=== PATIENT | male | born 1960 | race Caucasian/White ===

== ENCOUNTER → 2017-05-22 | Outpatient (CLI) | payer OTHER ==
[~2017-05-22] MED LIST: ALBU90OI INH; BENZ100A; BUPR75; Bactrim Ds Tab1 EACH PO; CAMBIA50 MG; CHOL10002; CREON DR 12,001 EACH PO; Cleocin HCl150 MG PO; DICL25ER PO; DULO60; DULO60 PO; ERGO400 PO; FISH OIL 1,0001 EAC1; GABA600 PO; GEMF600 PO; GLIP10 PO; GLIP5 PO; HYDACE5 PO; HYDCHL25 PO; HYDR1TAB94 PO; IBUP800 PO; INSUASPI SC; INSULANPEN; LISI20 PO; METF500 PO; Norco 5-325 Ta1 EACH PO; Norco 7.5-3251 EACH PO; Novolog100 UNIT/1 SC; OMEP20ER PO; OMEP40CA12 PO; OXYACE5T PO; PRAZ2 PO; PRED10 PO; PROC10 PO; PROM25 PO; Pravachol40 MG PO; QUET100 PO; QUET200 PO; RXHYDACE PO; Stool Softener100 MG; TRAZ100; TRAZ100 PO; TRAZODONE; Vitamin D2000 UNIT PO; Zofran Odt4 MG SL; Zofran4 MG PO
[2017-05-22 14:59] LABS: Percent Saturation 26.4 % (20.0-50.0)
== END | disposition home or self-care (01) ==
LOC: LAB SHORT 13:13 → LAB 13:13
PROVIDERS: Internal Medicine Hematology & Oncology
DX: D64.9 Anemia, unspecified (principal); I10 Essential (primary) hypertension
CPT/HCPCS: 82728; 83540; 83550

== ENCOUNTER → 2017-11-13 | Outpatient (CLI) | payer OTHER | END | disposition home or self-care (01) | LOC: LAB SHORT 11:11 → PLD 11:11 | DX: D48.5 Neoplasm of uncertain behavior of skin (principal) | CPT/HCPCS: 88305; 88312 ==

== ENCOUNTER → 2019-08-05 | Outpatient (CLI) | payer OTHER ==
[2019-08-05 13:01] LABS: BASOPHILS ABSOLUTE AUTO 0.02 K/mm3 (0.00-0.23); BASOPHILS PERCENT AUTO 0 % (0-2); EOSINOPHILS ABSOLUTE AUTO 0.09 K/mm3 (0.00-0.68); EOSINOPHILS PERCENT AUTO 1 % (0-6); Hematocrit 40.9 % (37.0-53.0); Hemoglobin 14.4 g/dL (13.5-17.5); IMMATURE GRAN ABSOLUTE AUTO 0.05 K/mm3 (0.00-0.10); IMMATURE GRAN PERCENT AUTO 1 % (0-1); LYMPHOCYTES ABSOLUTE AUTO 2.61 K/mm3 (0.84-5.20); LYMPHOCYTES PERCENT AUTO 32 % (21-46); MONOCYTES ABSOLUTE AUTO 0.43 K/mm3 (0.16-1.47); MONOCYTES PERCENT AUTO 5 % (4-13); Mean Corpuscular HGB Conc 35.2 g/dL (31.5-36.5); Mean Corpuscular Volume 88 fL (80-100); Mean Platelet Volume 10.2 fL (9.1-12.4); NEUTROPHILS ABSOLUTE AUTO 5.02 K/mm3 (1.96-9.15); NEUTROPHILS PERCENT AUTO 61 % (41-73); Platelet Count 277 K/mm3 (150-400); RDW Coefficient Variation 12.4 % (11.7-14.2); RDW Standard Deviation 39.4 fL (35.1-46.3); Red Blood Cell Count 4.64 M/mm3 (4.30-5.90); White Blood Cell Count 8.22 K/mm3 (4.00-11.30)
[2019-08-05 13:09] LABS: Alanine Aminotransfer (ALT/SGP 65 U/L (12-78); Albumin, Blood 4.6 g/dL (3.4-5.0); Albumin/Globulin Ratio 1.2 (0.8-1.8); Alk Phos 95 U/L (40-126); Anion Gap 13 mmol/L (6-16); Aspartate Aminotrans (AST/SGOT 52 U/L (12-37); Bilirubin, Total 0.3 mg/dL (0.1-1.0); Blood Urea Nitrogen 20 mg/dL (8-24); Bun/Creatinine Ratio 21.1 (12.0-20.0); CO2, Blood 27 mmol/L (21-32); Calcium, Blood 9.5 mg/dL (8.5-10.1); Chloride, Blood 102 mmol/L (98-108); Creatinine, Blood 0.95 mg/dL (0.60-1.20); Globulin, Blood 3.9 g/dL (2.2-4.0); Glomerular Filtration Rate >60 (60-); Glucose, Blood 193 mg/dL (70-99); Potassium, Blood 5.3 mmol/L (3.5-5.5); Sodium, Blood 142 mmol/L (136-145); Total Protein, Blood 8.5 g/dL (6.4-8.2)
[2019-08-05 21:22] LABS: Adenovirus F 40/41 Not Detected (NOT DETECT); Astrovirus Not Detected (NOT DETECT); Campylobacter Sp Not Detected (NOT DETECT); Cryptosporidium Not Detected (NOT DETECT); Cyclospora Cayetanensis Not Detected (NOT DETECT); E. Coli O157 Not Detected (NOT DETECT); Entamoeba Histolytica Not Detected (NOT DETECT); Enteroaggregative E. coli-EAEC Not Detected (NOT DETECT); Enteropathogenic E. coli-EPEC Not Detected (NOT DETECT); Enterotoxigenic E. coli-ETEC Not Detected (NOT DETECT); Giardia Lamblia Not Detected (NOT DETECT); Norovirus GI/GII Not Detected (NOT DETECT); Plesiomonas Shigelloides Not Detected (NOT DETECT); Rotavirus A Not Detected (NOT DETECT); Salmonella Sp Not Detected (NOT DETECT); Sapovirus Not Detected (NOT DETECT); Shiga Toxin-prod E. coli-STEC Not Detected (NOT DETECT); Shigella/Enteroin E. coli-EIEC Not Detected (NOT DETECT); Vibrio Cholerae Not Detected (NOT DETECT); Vibrio Sp Not Detected (NOT DETECT); Yersinia Enterocolitica Not Detected (NOT DETECT)
== END | disposition home or self-care (01) ==
LOC: LAB SHORT 12:54 → LAB EV 12:54
PROVIDERS: Physician Assistant
DX: R10.13 Epigastric pain (principal)
CPT/HCPCS: 0097U; 80053; 83690; 85025

== ENCOUNTER → 2020-02-08 | Outpatient (CLI) | payer MEDICARE, OTHER ==
[2020-02-08 19:57] LABS: Percent Saturation 29.7 % (20.0-50.0)
== END | disposition home or self-care (01) ==
LOC: LAB SHORT 17:25
PROVIDERS: Internal Medicine Hematology & Oncology
DX: E61.1 Iron deficiency (principal)
CPT/HCPCS: 82728; 83540; 83550

== ENCOUNTER → 2020-02-09 | Outpatient (CLI) | payer MEDICARE, OTHER | END | disposition home or self-care (01) | LOC: PLD 11:26 → LAB SHORT 11:26 | DX: D48.5 Neoplasm of uncertain behavior of skin (principal) | CPT/HCPCS: 88305 ==

== ENCOUNTER → 2021-04-20 | Outpatient (CLI) | payer MEDICARE, OTHER | END | disposition home or self-care (01) | LOC: LAB SHORT 12:18 → PLD 12:18 | DX: D48.5 Neoplasm of uncertain behavior of skin (principal) | CPT/HCPCS: 88305 ==

== ENCOUNTER → 2021-10-03 | Outpatient (CLI) | payer MEDICARE, OTHER | END | disposition home or self-care (01) | LOC: PLD 08:03 → LAB SHORT 08:03 | DX: D48.5 Neoplasm of uncertain behavior of skin (principal) | CPT/HCPCS: 88305 ==

== ENCOUNTER 2021-10-30 06:14 | Day surgery (SDC) | payer MEDICARE, OTHER ==
[~2021-10-30] VITALS: Ht 172.7 cm; Wt 89.5 kg
[2021-10-30] MEDS ORDERED: METO25ER (06:46)
[2021-10-30] MEDS ORDERED: CATAPRES0.1 MG (06:58)
[2021-10-30] MEDS ORDERED: CREON DR 12,001 EACH (06:59)
--- NOTE | 2021-10-30 07:58 | NUR ---
10/30/21 0758 BRENDA MENDOZA 0.05MG OF EPI (1MG/1ML) ADDED TO 10MLS OF ROPIVACAINE 0.5% TO CREATE A LOCAL SOLUTION OF ROPIVACAINE 0.5% WITH EPI 1:200,000. LOCAL POURED ONTO STERILE FIELD FOR USE DURING CASE.
== END 2021-10-30 09:52 | disposition home or self-care (01) ==
LOC: ORSCSDS 06:14
PROVIDERS: Orthopaedic Surgery
PROC: 0JNJ0ZZ Release Right Hand Subcutaneous Tissue and Fascia, Open Approach (ICD-10-PCS; principal; 2021-10-30 07:30)
PROC: 0LN70ZZ Release Right Hand Tendon, Open Approach (ICD-10-PCS; principal; 2021-10-30 07:30)
DX: M72.0 Palmar fascial fibromatosis [Dupuytren] (principal); I10 Essential (primary) hypertension; G47.33 Obstructive sleep apnea (adult) (pediatric); E11.9 Type 2 diabetes mellitus without complications; F41.8 Other specified anxiety disorders; K21.9 Gastro-esophageal reflux disease without esophagitis; J45.909 Unspecified asthma, uncomplicated; Z79.4 Long term (current) use of insulin; Z79.899 Other long term (current) drug therapy
CPT/HCPCS: 82947; 88304; J0171; J1100; J1885; J2250; J2405; J2704; J2795; J3010; J3370; J7120

== ENCOUNTER → 2021-12-15 | Outpatient (CLI) | payer MEDICARE, OTHER ==
[~2021-12-15] MED LIST changes: +CATAPRES0.1 MG; +CREON DR 12,001 EACH; +METO25ER
[2021-12-15 15:55] LABS: Ferritin, Serum 33 ng/mL (26-388); Iron Serum 150 ug/dL (65-175); Percent Saturation 35.8 % (20.0-50.0); Prostate Specific Antigen 0.605 ng/mL (0.000-4.000); Total Iron Binding Capacity 419 ug/dL (250-450)
== END | disposition home or self-care (01) ==
LOC: LAB 13:58 → LAB SHORT 13:58
PROVIDERS: Internal Medicine Hematology & Oncology
DX: Z12.5 Encounter for screening for malignant neoplasm of prostate (principal); E61.1 Iron deficiency
CPT/HCPCS: 82728; 83540; 83550; G0103

== ENCOUNTER → 2021-12-20 | Outpatient (CLI) | payer MEDICARE, OTHER | LOC: LAB SHORT 11:37 → PLD 11:37 | DX: C44.612 Basal cell carcinoma of skin of right upper limb, including shoulder (principal); L57.0 Actinic keratosis | CPT/HCPCS: 88305 ==

== ENCOUNTER → 2022-03-27 | Outpatient (CLI) | payer MEDICARE, OTHER | END | disposition home or self-care (01) | LOC: LAB SHORT 10:00 → PLD 10:00 | DX: L57.0 Actinic keratosis (principal) | CPT/HCPCS: 88305 ==